=== PATIENT | female | born 1935 | race Caucasian/White ===

== ENCOUNTER 2021-01-23 14:09 | Emergency (ER) | payer MEDICARE, SELFPAY ==
[2021-01-23 14:11] VITALS: BP 128/66; PULSE 76; RESP 19; TEMP 37.2; O2SAT 99; BMI 31.6
--- NOTE | 2021-01-23 14:30 | EKG12_ITS ---
Test Reason : SYNCOPE Blood Pressure : / mmHG Vent. Rate : 080 BPM Atrial Rate : 080 BPM P-R Int : 176 ms QRS Dur : 082 ms QT Int : 416 ms P-R-T Axes : 067 030 067 degrees QTc Int : 479 ms Normal sinus rhythm Normal ECG Confirmed by DARRYL DURAN, MICAELA ([id number]), editor department MANISH MARSHALL ([id number]) on 01/27/2021 1:59:47 PM Referred By: ANA Confirmed By:MICAELA ANDREWS MD
--- NOTE | 2021-01-23 14:30 | NURSING ---
NO OLD EKGS
--- NOTE | 2021-01-23 14:31 | EDS_ITS ---
HPI History of Present Illness Chief Complaint: Syncope Informant: patient Onset/Context/Timing Onset: Today (Just prior to arrival) Context: Sudden Onset Timing: Intermittent (Once) and Lasts (Couple minutes) Quality: Syncope Current Severity: Gone (Feels fine now) Maximum Severity: Severe Associated Symptoms Associated Symptoms: Abdominal discomfort and nausea Narrative Narrative: Patient was with a friend eating lunch at a restaurant, she had chicken salad and some grapes and nonalcoholic beverage. She started getting some mid upper abdominal discomfort along with some nausea, she went to get up and go to the bathroom but before even standing, she lost consciousness and passed out, collapsing to the floor. There was a nurse nearby who came to her assistance, raising her legs up and putting a cold cloth on her forehead. She regained consciousness, EMS was called and transported her, she vomited in route, and now feels back to normal. No recent travel, immobilization, hospitalization, or surgery. No history of DVT or PE, no recent leg pain or swelling. No history of heart problems. She denies feeling any preceding shortness of breath, palpitations, chest pain, or lightheadedness. The friend states that she coughed really hard right before she lost consciousness. [facility] Medical History GERD (gastroesophageal reflux disease) Hyperlipidemia Hypothyroid Home Medications cholecalciferol (vitamin D3) [Vitamin D3] 100 mcg PO DAILY 01/23/21 [History Last Taken Unknown] cyanocobalamin (vitamin B-12) [Vitamin B-12] 1,000 mcg PO DAILY 01/23/21 [History Last Taken Unknown] escitalopram oxalate 5 mg PO DAILY 01/23/21 [History Last Taken Unknown] famotidine 40 mg PO DAILY 01/23/21 [History Last Taken Unknown] levothyroxine [Synthroid] 88 mcg PO DAILY 01/23/21 [History Last Taken Unknown] lovastatin 20 mg PO DAILY 01/23/21 [History Last Taken Unknown] raloxifene 60 mg PO DAILY 01/23/21 [History Last Taken Unknown] vitamin A-vitamin C-vit E-min [Ocuvite] 1 tab PO DAILY 01/23/21 [History Last Taken Unknown] Allergy/AdvReac Type Severity Reaction Status Date / Time No Known Allergies Allergy Verified 01/23/21 14:10 Surgical History History of hysterectomy Social History Smoking Status: Former smoker ROS ROS ED Constitutional Constitutional ED: Denies chills or fever(s) Eyes Eyes: Denies change in vision or diplopia ENT ENT ED: Denies rhinorrhea or sore throat Cardiovascular Cardiovascular: Denies chest pain or palpitations Respiratory/Chest Respiratory/Chest: Denies cough or dyspnea Gastrointestinal Gastrointestinal: Reports as per HPI, abdominal pain, nausea and vomiting; Denies diarrhea Genitourinary Genitourinary ED: Denies dysuria or hematuria Musculoskeletal Musculoskeletal: Denies back pain or neck pain Integumentary Denies abscess or rash Neurologic Neurologic: Denies headache(s), paresthesias or weakness Psychiatric Psychiatric: Denies anxiety or suicidal thoughts EXAM Physical Exam Const Vital Signs: 01/23/21 14:11 01/23/21 14:25 01/23/21 15:10 Temperature 99.0 F Temperature Source Oral Pulse Rate 76 81 Pulse Rate [Lying] Pulse Rate [Sitting] Pulse Rate [Standing] Respiratory Rate 19 H 15 Respiratory Effort Normal Non-Labored Respiratory Pattern Normal Blood Pressure 128/66 H 98/86 H Blood Pressure [Lying] Blood Pressure [Sitting] Blood Pressure [Standing] Blood Pressure Mean 86 90 Blood Pressure Mean [Lying] Blood Pressure Mean [Sitting] Blood Pressure Mean [Standing] Pulse Ox 99 99 Oxygen Delivery Method Room Air Room Air 01/23/21 15:13 01/23/21 16:00 01/23/21 17:00 Temperature Temperature Source Pulse Rate 80 82 Pulse Rate [Lying] 84 Pulse Rate [Sitting] 83 Pulse Rate [Standing] 94 Respiratory Rate 16 18 Respiratory Effort Respiratory Pattern Blood Pressure 118/57 L 113/60 Blood Pressure [Lying] 97/72 Blood Pressure [Sitting] 123/62 H Blood Pressure [Standing] 98/86 H Blood Pressure Mean 77 77 Blood Pressure Mean [Lying] 80 Blood Pressure Mean [Sitting] 82 Blood Pressure Mean [Standing] 90 Pulse Ox 99 99 Oxygen Delivery Method Room Air Room Air Positive well nourished and well developed Constitutional Narrative: Well-appearing, conversive in full sentences, memory intact General Appearance ED: well developed and NAD HEENT Reports moist mucous membranes normocephalic and atraumatic Eyes PERRL and EOMs intact bilaterally Neck full ROM and supple Resp normal respiratory effort and clear to auscultation bilaterally Cardio regular rate, regular rhythm and no murmurs GI non-tender and non-distended Auscultation: normoactive bowel sounds Palpation: soft Back/Spine no CVA tenderness General Back: other FROM Extremity normal to inspection and no calf tenderness General Extremety ED: Negative for edema, pulses abnormal or tenderness General Extremity: Negative for edema or pulses abnormal Neuro oriented x3, CN's II-XII intact bilaterally and no sensory deficits noted Sensorium / Orientation: awake and alert Motor Exam: strength 5/5 throughout Skin no rashes or lesions noted and no wounds MDM MDM MDM Narrative Medical decision making narrative: Patient was observed for a while in the ED while testing was run, she remained asymptomatic. Orthostatics are negative, she is ambulatory around the department without any recurrent problems and feels fine. Her work-up is negative including for pulmonary embolus. She has a D- dimer that is abnormal, but at 0.54 it is well within normal limits when adjusted for her age, ruling out pulmonary embolus as acute cause of her problems today. Her symptoms are consistent with a vasovagal syncopal episode. Why she had the upper abdominal discomfort with vomiting is unclear, but it is resolved and her abdomen is benign. Additionally she had a bout of loose nonbloody diarrhea here, and her vital signs are normal. Therefore I do not feel she needs emergent abdominal pelvic imaging at this time. I offered admission but she declines and prefers to go home. I gave her appropriate discharge information regarding vagal episodes, she asks if it is okay to drive, I told her it is as long as she is feeling okay. 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 She should follow-up after the weekend she is comfortable with that plan. Lab Data Attestation: I reviewed the patient's lab results. Labs: Laboratory Results - last 24 hr 01/23/21 01/23/21 01/23/21 13:50 13:50 13:50 WBC 5.8 RBC 3.95 L Hgb 13.4 Hct 40.7 MCV 103.0 H MCH 33.9 H MCHC 32.9 RDW Std Deviation 46.7 H RDW Coeff of Luis 12.3 Plt Count 235 MPV 9.8 Immature Gran % (Auto) 0.300 Neut % (Auto) 47.3 Lymph % (Auto) 32.7 [place] % (Auto) 9.6 Eos % (Auto) 9.4 H Baso % (Auto) 0.7 Absolute Neuts (auto) 2.8 Absolute Lymphs (auto) 1.91 Nucleated RBC % 0 D-Dimer Quant (PE/DVT) 0.54 H* Sodium 140 Potassium 3.5 Chloride 105 Carbon Dioxide 27.0 Anion Gap 8 BUN 19 H Creatinine 1.05 H Estim Creat Clear Calc 35.89 Est GFR (MDRD) Af Amer 64 Est GFR (MDRD) Non-Af 53 L BUN/Creatinine Ratio 18.1 Glucose 117 H Calcium 9.2 Total Bilirubin 0.50 AST 20 ALT 22 Alkaline Phosphatase 56 Troponin I Total Protein 7.0 Albumin 3.6 Globulin 3.4 Albumin/Globulin Ratio 1.1 Lipase 115 Urine Color Urine Clarity Urine pH Ur Specific [place] Urine Protein Urine Glucose (UA) Urine Ketones Urine Occult Blood Urine Nitrite Urine Bilirubin Urine Urobilinogen Ur Leukocyte Esterase Urine RBC Urine WBC Ur Squamous Epith Cells Ur Renal Epithelial Cell Urine Bacteria Urine Mucus 01/23/21 01/23/21 13:50 15:27 WBC RBC Hgb Hct MCV MCH MCHC RDW Std Deviation RDW Coeff of Luis Plt Count MPV Immature Gran % (Auto) Neut % (Auto) Lymph % (Auto) [place] % (Auto) Eos % (Auto) Baso % (Auto) Absolute Neuts (auto) Absolute Lymphs (auto) Nucleated RBC % D-Dimer Quant (PE/DVT) Sodium Potassium Chloride Carbon Dioxide Anion Gap BUN Creatinine Estim Creat Clear Calc Est GFR (MDRD) Af Amer Est GFR (MDRD) Non-Af BUN/Creatinine Ratio Glucose Calcium Total Bilirubin AST ALT Alkaline Phosphatase Troponin I < 0.015 Total Protein Albumin Globulin Albumin/Globulin Ratio Lipase Urine Color Straw Urine Clarity Clear Urine pH 5.0 Ur Specific [place] 1.025 Urine Protein Negative Urine Glucose (UA) Normal Urine Ketones Negative Urine Occult Blood Negative Urine Nitrite Positive H Urine Bilirubin Negative Urine Urobilinogen Normal Ur Leukocyte Esterase 25 H Urine RBC 0 SEEN Urine WBC 0-5 SEEN Ur Squamous Epith Cells 0 SEEN Ur Renal Epithelial Cell 0-5 SEEN Urine Bacteria RARE Urine Mucus 0 SEEN EKG Initial EKG: Attestation: I personally reviewed and interpreted this EKG as follows: Interpretation: Sinus Rhythm and No Acute Injury Pattern Comments: Normal EKG Prior EKG tracings: not available for review Discharge Plan Triage Chief Complaint: Syncope ED Provider: Juan Cuello Dx/Rx/DC Orders Clinical Impression: Vasovagal syncope, Vomiting and diarrhea Instructions: ED Gastritis (Adult), ED Fainting, Vagal Reaction Prescriptions: No Action levothyroxine [Synthroid] 88 mcg Tablet 88 mcg PO DAILY RF: 0 escitalopram oxalate 5 mg Tablet 5 mg PO DAILY RF: 0 famotidine 40 mg Tablet 40 mg PO DAILY RF: 0 cyanocobalamin (vitamin B-12) [Vitamin B-12] 1,000 mcg Tablet 1,000 mcg PO DAILY RF: 0 raloxifene 60 mg Tablet 60 mg PO DAILY RF: 0 lovastatin 20 mg Tablet 20 mg PO DAILY RF: 0 Ocuvite Tablet 1 tab PO DAILY RF: 0 Vitamin D3 100 mcg (4,000 unit) Capsule 100 mcg PO DAILY RF: 0 Referrals: JORY KENNEDY [Other] (Next week) Disposition Disposition: Home, self care
[2021-01-23 14:37] LABS: Absolute Lymphocyte Count 1.91 X10^3/uL (0.83-4.51); Absolute Neutrophil Count 2.8 X10^3/uL (2.0-7.7); Basophil# 0.04 X10^3/uL; Basophil% 0.7 % (0-1); Eosinophil# 0.55 X10^3/uL; Eosinophils% 9.4 % (0-5); Hematocrit 40.7 % (37-47); Hemoglobin 13.4 g/dL (12.0-15.0); Lymphocyte # 1.91 X10^3/ul (0.83-4.51); Lymphocyte % 32.7 % (19-41); Mean Corp Hgb Conc 32.9 g/dL (32-36); Mean Corpuscular Hgb 33.9 pg (27.0-32.0); Mean Platelet Vol. 9.8 fl (6.2-12.0); Monocyte# 0.56 X10^3/uL; Monocyte% 9.6 % (0-10); NRBC Flagged by Analyzer 0 % (0-5); Neutrophil # 2.76 X10^3/uL (2.7-7.7); Neutrophil % 47.3 % (47-70); Platelet Count 235 K/mm3 (150-450); RBC Distribution Width CV 12.3 % (11.6-14.6); RBC Distribution Width SD 46.7 fl (35.1-43.9); Red Blood Count 3.95 M/mm3 (4.2-5.4); White Blood Count 5.8 K/mm3 (4.4-11.0)
[2021-01-23 14:45] LABS: D-Dimer Quantitative (DVT/PE) 0.54 FEU/ug/m (0.27-0.49)
[2021-01-23 14:49] LABS: ALB/GLOB Ratio 1.1 RATIO (0.9-2.4); AST(SGOT) 20 U/L (15-37); Alanine Aminotransfer ALT/SGPT 22 U/L (13-56); Albumin, Serum 3.6 g/dL (3.2-5.0); Alkaline Phosphatase 56 U/L (45-117); Anion Gap 8 (5-15); BUN 19 mg/dL (7-18); BUN/Creat Ratio 18.1 RATIO (10-20); Calcium,Total 9.2 mg/dL (8.5-10.1); Chloride 105 mmol/L (98-107); Creatinine, Serum 1.05 mg/dL (0.55-1.02); EST Glomerular Filtration Rate 53 mL/min (>60); Est Glom Filt Rate - Afr Amer 64 mL/min (>60); Estimated Creatinine Clearance 35.89 ml/min; Globulin 3.4 g/dL (2.2-4.2); Glucose 117 mg/dL (74-106); Lipase 115 U/L (73-393); Potassium 3.5 mmol/L (3.5-5.1); Sodium Level 140 mmol/L (136-145)
[2021-01-23 15:10] VITALS: BP 98/86; PULSE 81; RESP 15; O2SAT 99
[2021-01-23 15:13] VITALS: BP 123/62; BP 97/72; BP 98/86; PULSE 83; PULSE 84; PULSE 94
[2021-01-23 15:38] LABS: Mucous, Urine 0 SEEN /hpf (<or=2+); Red Blood Cells-Urine 0 SEEN /hpf (0-5); Squamous Epithelial Cells - UA 0 SEEN /hpf (5-10)
[2021-01-23 15:50] LABS: Color, Urine Straw (Yellow); Glucose, Dipstick Normal (Normal); Ketone-Dipstick Negative (Negative); Leukocyte Esterase-Dipstick 25 /ul (Negative); Nitrite-Dipstick Positive (Negative); Occult Blood-Urine Negative /ul (Negative); Protein-Dipstick Negative (Negative); Specific Gravity, Urine 1.025 (1.002-1.030); Urine Bilirubin Dipstick Negative (Negative); Urine Clarity Clear (Clear); Urine Urobilinogen Normal (Normal)
[2021-01-23 15:59] LABS: Bacteria RARE /hpf (None Seen); Renal Epithelial Cells 0-5 SEEN /hpf (0-5); White Blood Cells 0-5 SEEN /hpf (0-5)
[2021-01-23 16:00] VITALS: BP 118/57; PULSE 80; RESP 16; O2SAT 99
[2021-01-23 17:00] VITALS: BP 113/60; PULSE 82; RESP 18; O2SAT 99
[2021-01-23 17:54] VITALS: BP 113/60
== END 2021-01-23 17:54 | disposition home or self-care (01) ==
PROVIDERS: Emergency Provider Emergency Medicine
DX: R55 Syncope and collapse (principal); R11.2 Nausea with vomiting, unspecified; R19.7 Diarrhea, unspecified; E03.9 Hypothyroidism, unspecified; E78.5 Hyperlipidemia, unspecified; K21.9 Gastro-esophageal reflux disease without esophagitis; Z79.899 Other long term (current) drug therapy; Z87.891 Personal history of nicotine dependence
CPT/HCPCS: 80053; 81001; 83690; 84484; 85025; 85379; 87086; 87088; 93005; 99285